=== PATIENT | female | born 1965 | race Hispanic/Latino ===

== ENCOUNTER 2022-10-23 16:33 | Emergency (ER) | payer BC ==
[~2022-10-23] VITALS: Ht 160 cm; Wt 59.0 kg
[2022-10-23] MEDS ORDERED: LISI10TA24 PO (20:49)
[2022-10-23 21:44] VITALS: BP 135/81
== END 2022-10-23 21:59 | disposition home or self-care (01) ==
LOC: EDH 16:33
DX: I10 Essential (primary) hypertension (principal); Z79.899 Other long term (current) drug therapy
CPT/HCPCS: 93005